=== PATIENT | female | born 1985 | race Hispanic/Latino ===

== ENCOUNTER 2022-07-07 10:23 | Day surgery (SDC) | payer BC, OTHER ==
[2022-07-07 11:07] VITALS: BMI 35.8
[2022-07-07] MEDS ORDERED: hydrALAZINE 20 MG/ML VIAL SLOW IVP PRN (11:51)
[2022-07-07 13:25] LABS: ALT (SGPT) 17 U/L (8-55); AST (SGOT) 18 U/L (5-34); Albumin 3.7 g/dL (3.5-5.0); Alkaline Phosphatase 112 U/L (40-110); Anion Gap 14 mmol/L (10-20); BUN (Urea Nitrogen) 5 mg/dL (7.0-18.7); Bilirubin, Total 0.4 mg/dL (0.2-1.2); Calc. Creatinine Clearance 169 mL/min (70-130); Calcium 8.9 mg/dL (7.8-10.44); Carbon Dioxide 21 mmol/L (22-29); Chloride 103 mmol/L (98-107); Estimated GFR 117; Globulin 3.4 g/dL (2.4-3.5); Glucose 82 mg/dL (70-105); Potassium 3.4 mmol/L (3.5-5.1); Protein, Total 7.1 g/dL (6.0-8.3); Sodium 135 mmol/L (136-145)
[2022-07-07 13:34] LABS: Creatinine, Urine 27.38 mg/dL (47-110); Protein, Urine Random Quant Less than 10 mg/dL (1-14)
[2022-07-07 13:37] LABS: #Basophils 0.1 10x3/uL (0.0-0.2); #Eosinphils 0.6 10x3/uL (0.0-0.5); #Monocytes 0.8 10x3/uL (0.0-1.1); %Basophils 0.4 % (0.0-2.0); %Eosinophils 5.4 % (0.0-6.0); %Lymphocytes 19.3 % (18.0-47.0); %Monocytes 6.7 % (0.0-10.0); %Neutrophils 67.5 % (40.0-75.0); Hemoglobin 13.3 g/dL (12.0-15.5); Mean Corpuscular HGB CONC 33.5 g/dL (32.0-36.0); Mean Corpuscular Hemoglobin 29.8 pg (27.0-33.0); Mean Platelet Volume 10.2 fl (7.4-10.4); Platelet Count 278 10x3/uL (150-450); RBC Distribution Width 13.2 % (11.5-14.5); Red Blood Cell (RBC) Count 4.46 10x6/uL (3.90-5.03); White Blood Cell (WBC) Count 11.9 10x3/uL (3.5-10.5)
[2022-07-07] MEDS ORDERED: Labetalol HCl 100 MG TAB PO SCH (14:00)
== END 2022-07-07 15:05 | disposition home or self-care (01) ==
LOC: CSHLD/OP 10:23
PROVIDERS: ATTEND Obstetrics & Gynecology
DX: O36.8130 Decreased fetal movements, third trimester, not applicable or unspecified (principal); O47.03 False labor before 37 completed weeks of gestation, third trimester; O09.523 Supervision of elderly multigravida, third trimester; O99.013 Anemia complicating pregnancy, third trimester; D64.9 Anemia, unspecified; O10.013 Pre-existing essential hypertension complicating pregnancy, third trimester; O26.893 Other specified pregnancy related conditions, third trimester; L29.9 Pruritus, unspecified; Z79.899 Other long term (current) drug therapy; Z3A.35 35 weeks gestation of pregnancy; Z87.59 Personal history of other complications of pregnancy, childbirth and the puerperium
CPT/HCPCS: 76819; 80053; 82239; 82570; 84156; 85025

== ENCOUNTER 2022-07-09 12:46 | Inpatient (IN) | payer BC, OTHER ==
[~2022-07-09 12:46] MED LIST: Bupivacaine 0.25% HCL 30 ML VIAL ONE; Bupivacaine HCl 0.5%/Epinephrine 1:200,000/PF 30 ml Vial ONE
[2022-07-09] MEDS ORDERED: hydrALAZINE 20 MG/ML VIAL SLOW IVP PRN ×2 (13:15→15:18)
[2022-07-09 13:58] LABS: #Eosinphils 0.2 10x3/uL (0.0-0.5); #Monocytes 0.8 10x3/uL (0.0-1.1); #Neutrophils 6.9 10x3/uL (1.5-8.4); %Basophils 0.2 % (0.0-2.0); %Eosinophils 2.4 % (0.0-6.0); %Lymphocytes 18.9 % (18.0-47.0); Hemoglobin 13.2 g/dL (12.0-15.5); Mean Corpuscular HGB CONC 33.2 g/dL (32.0-36.0); Mean Corpuscular Hemoglobin 29.3 pg (27.0-33.0); Mean Corpuscular Volume 88.2 fl (81.6-98.3); Mean Platelet Volume 10.3 fl (7.4-10.4); Platelet Count 257 10x3/uL (150-450); RBC Distribution Width 13.1 % (11.5-14.5); White Blood Cell (WBC) Count 9.8 10x3/uL (3.5-10.5)
[2022-07-09 14:01] VITALS: BMI 36.0
[2022-07-09 14:14] LABS: ALT (SGPT) 17 U/L (8-55); AST (SGOT) 16 U/L (5-34); Albumin 3.4 g/dL (3.5-5.0); Alkaline Phosphatase 99 U/L (40-110); Anion Gap 12 mmol/L (10-20); BUN (Urea Nitrogen) 9 mg/dL (7.0-18.7); Bilirubin, Total 0.3 mg/dL (0.2-1.2); Calc. Creatinine Clearance 167 mL/min (70-130); Calcium 8.9 mg/dL (7.8-10.44); Carbon Dioxide 21 mmol/L (22-29); Chloride 105 mmol/L (98-107); Estimated GFR 116; Globulin 3.2 g/dL (2.4-3.5); Glucose 86 mg/dL (70-105); Potassium 3.8 mmol/L (3.5-5.1); Protein, Total 6.6 g/dL (6.0-8.3); Sodium 134 mmol/L (136-145)
[2022-07-09] MEDS ORDERED: Fentanyl 2 mcg/Bup 0.1% Cadd 100 ML ONE (15:13)
[2022-07-09] MEDS ORDERED: Promethazine HCl 25 MG/ML VIAL IM PRN ×2 (15:18→16:02)
[2022-07-09] MEDS ORDERED: Misoprostol 200 MCG TAB PR PRN (15:18)
[2022-07-09] MEDS ORDERED: Carboprost 250 MCG/ML AMP IM PRN (15:18)
[2022-07-09] MEDS ORDERED: Ondansetron PF 4 MG/2 ML Vial IVP PRN (15:18)
[2022-07-09] MEDS ORDERED: Diphenoxylate HCl/Atropine Tablet PO PRN ×2 (15:18)
[2022-07-09] MEDS ORDERED: HYDROcodone/Acetaminophen 5/325 mg Tablet PO PRN ×2 (15:18)
[2022-07-09] MEDS ORDERED: Lidocaine 1% (PF) 30 ML VIAL SC PRN (15:18)
[2022-07-09] MEDS ORDERED: Ibuprofen 800 MG TAB PO PRN (15:18)
[2022-07-09] MEDS ORDERED: Terbutaline Sulfate 1 MG/ML VIAL ONE (15:19)
[2022-07-09] MEDS ORDERED: Mineral Oil ENEMA ONE (15:20)
[2022-07-09] MEDS: Lactated Ringer's 1,000 ML IV SCH (15:27)
[2022-07-09] MEDS ORDERED: NS w/ Oxytocin 30 units 500 ML IV SCH ×2 (15:30)
[2022-07-09] MEDS ORDERED: Penicillin G Potassium 5 MILL.UNITS in Sodium Chloride 0.9% 100 ML IVPB SCH (15:30)
[2022-07-09 15:38] LABS: Hemoglobin 13.7 g/dL (12.0-15.5); Mean Corpuscular HGB CONC 33.8 g/dL (32.0-36.0); Mean Corpuscular Hemoglobin 29.8 pg (27.0-33.0); Mean Platelet Volume 11.3 fl (7.4-10.4); Platelet Count 277 10x3/uL (150-450); RBC Distribution Width 13.2 % (11.5-14.5); White Blood Cell (WBC) Count 10.7 10x3/uL (3.5-10.5)
[2022-07-09 15:50] LABS: SARS-CoV-2 NAA Rapid Test Not Detected (NotDetected)
[2022-07-09] MEDS ORDERED: Lactated Ringer's 500 ML IV PRN (16:02)
[2022-07-09] MEDS ORDERED: Naloxone HCl 0.4 mg/ml Vial IVP PRN ×2 (16:02)
[2022-07-09] MEDS ORDERED: diphenhydrAMINE 50 MG/ML VIAL IVP PRN (16:02)
[2022-07-09] MEDS ORDERED: ePHEDrine Sulfate 50 MG/10 ML VIAL SLOW IVP PRN (16:02)
[2022-07-09] MEDS ORDERED: Moisturizing Cream (Eucerin) 113 GM JAR TOP PRN (16:02)
[2022-07-09] MEDS ORDERED: Communication Order-Pharmacy FS SCH (16:15)
[2022-07-09] MEDS ORDERED: Fentanyl 2 mcg/Bupivacaine 0.1% Cassette 100 ML EPIDURAL SCH (16:15)
[2022-07-09] MEDS ORDERED: Magnesium Sulfate 20 gm/500 ml 20 GM/500 ML BAG ONE (16:33)
[2022-07-09 17:04] LABS: Syphilis Antibody Nonreactive (Nonreactive); Syphilis Antibody Index 0.05 S/CO (<1.00 Non-Reactive)
[2022-07-09 17:06] LABS: HBSAg Index 0.17 S/CO (0-0.99); Hep B Surf Ag Non-Reactive S/CO (NonReactive)
[2022-07-09] MEDS: Pen G 2.5 MILL.UNITS/50 ML BAG IVPB SCH (20:57)
[2022-07-09] MEDS: Acetaminophen 325 MG TAB PO PRN (20:58)
[2022-07-09] MEDS: Ondansetron PF 4 MG/2 ML Vial IVP PRN (23:21)
[2022-07-10] MEDS ORDERED: Magnesium Sulfate 20 gm/500 ml 20 GM/500 ML BAG ONE (01:00)
[2022-07-10] MEDS: Pen G 2.5 MILL.UNITS/50 ML BAG IVPB SCH ×3 (01:02→11:29)
[2022-07-10] MEDS: Acetaminophen 325 MG TAB PO PRN ×3 (04:29→17:20)
[2022-07-10] MEDS: Calcium Carbonate 500 MG ChewTAB PO PRN ×2 (04:57→13:27)
[2022-07-10] MEDS ORDERED: Lorazepam 2 MG/ML VIAL SLOW IVP PRN (05:19)
[2022-07-10] MEDS ORDERED: hydrALAZINE 20 MG/ML VIAL SLOW IVP PRN (05:19)
[2022-07-10] MEDS ORDERED: Calcium Gluc 4.6 MEQ/10 ML (100 MG/ML) SLOW IVP PRN (05:19)
[2022-07-10] MEDS ORDERED: Labetalol HCl 100 MG/20 ML VIAL SLOW IVP PRN ×2 (05:19)
[2022-07-10] MEDS ORDERED: Magnesium Sulfate 20 gm/500 ml 20 GM/500 ML BAG IVPB SCH (05:30)
[2022-07-10] MEDS ORDERED: Fentanyl 2 mcg/Bup 0.1% Cadd 100 ML ONE (07:42)
[2022-07-10] MEDS: Ondansetron PF 4 MG/2 ML Vial IVP PRN (09:00)
[2022-07-10] MEDS ORDERED: Fentanyl 100 MCG/2 ML VIAL ONE (10:14)
[2022-07-10] MEDS ORDERED: Carboprost 250 MCG/ML AMP ONE (12:22)
[2022-07-10] MEDS ORDERED: Diphenoxylate HCl/Atropine Tablet PO PRN (13:05)
[2022-07-10] MEDS ORDERED: Ibuprofen 800 MG TAB PO PRN (13:05)
[2022-07-10] MEDS ORDERED: Mag-Al 1200 mg/1200 mg/30 ML UDCUP PO PRN (13:05)
[2022-07-10] MEDS ORDERED: Diphenoxylate HCl/Atropine Tablet PO SCH (13:15)
[2022-07-10] MEDS ORDERED: Labetalol HCl 200 MG TAB PO SCH (18:45)
[2022-07-10] MEDS: Magnesium Sulfate 20 gm/500 ml 20 GM/500 ML BAG IVPB SCH (21:18)
[2022-07-11] MEDS: Magnesium Sulfate 20 gm/500 ml 20 GM/500 ML BAG IVPB SCH (08:08)
[2022-07-11] MEDS ORDERED: Labetalol HCl 200 MG TAB PO SCH ×2 (09:00→12:00)
[2022-07-11] MEDS ORDERED: Misoprostol 200 MCG TAB VAG PRN (11:43)
[2022-07-11] MEDS ORDERED: Benzocaine-Menthol 82.5 ML CAN TOP PRN (11:43)
[2022-07-11] MEDS ORDERED: Bisacodyl 10 MG SUPP PR PRN (11:43)
[2022-07-11] MEDS ORDERED: Milk Of Magnesia 30 ML UDCUP PO PRN (11:43)
[2022-07-11] MEDS ORDERED: Lanolin Ointment 7 GM TUBE TOP PRN (11:43)
[2022-07-11] MEDS ORDERED: hydrALAZINE 20 MG/ML VIAL SLOW IVP PRN (11:43)
[2022-07-11] MEDS ORDERED: Boostrix 0.5 ML (Tdap) VIAL (>/=7 yrs of age) IM ONE (11:43)
[2022-07-11] MEDS ORDERED: Prenatal Vitamin 1 TAB PO SCH (12:00)
[2022-07-11] MEDS ORDERED: Docusate 100 MG CAP PO SCH (12:00)
[2022-07-11] MEDS: Lactated Ringer's 1,000 ML IV SCH ×2 (12:23→12:24)
[2022-07-11] MEDS: Ibuprofen 800 MG TAB PO SCH ×2 (12:31→21:22)
[2022-07-11] MEDS: Pen G 2.5 MILL.UNITS/50 ML BAG IVPB SCH (12:34)
[2022-07-11] MEDS: Ferrous Sulfate 325 MG TAB PO SCH (15:46)
[2022-07-11] MEDS: Docusate 100 MG CAP PO SCH (21:22)
[2022-07-11] MEDS: Labetalol HCl 200 MG TAB PO SCH (21:22)
[2022-07-12] MEDS: Ibuprofen 800 MG TAB PO SCH ×2 (06:00→13:55)
[2022-07-12] MEDS: Ferrous Sulfate 325 MG TAB PO SCH (07:05)
[2022-07-12] MEDS: Labetalol HCl 200 MG TAB PO SCH (08:36)
[2022-07-12] MEDS: Docusate 100 MG CAP PO SCH (08:36)
[2022-07-12] MEDS ORDERED: Prenatal Vitamin 1 TAB PO SCH (09:00)
[2022-07-12 16:24] VITALS: BP 138/76; TEMP 98.7
== END 2022-07-12 17:30 | disposition home or self-care (01) | DRG 806 ==
LOC: CSHLD/OP 12:46 → CSHLD 15:08 → CSHPP 07-11 12:00
PROVIDERS: ADMIT Obstetrics & Gynecology; ATTEND Obstetrics & Gynecology
PROC: 10E0XZZ Delivery of Products of Conception, External Approach (ICD-10-PCS; principal; 2022-07-09)
DX: O60.14X0 Preterm labor third trimester with preterm delivery third trimester, not applicable or unspecified (principal); O10.02 Pre-existing essential hypertension complicating childbirth; Z37.0 Single live birth; O11.4 Pre-existing hypertension with pre-eclampsia, complicating childbirth; O75.89 Other specified complications of labor and delivery; O69.81X0 Labor and delivery complicated by cord around neck, without compression, not applicable or unspecified; Z3A.36 36 weeks gestation of pregnancy; O32.1XX0 Maternal care for breech presentation, not applicable or unspecified; Z20.822 Contact with and (suspected) exposure to COVID-19
CPT/HCPCS: 51702; 76819; 80053; 82239; 82570; 84156; 85025; 86780; 86850; 86900; 86901; 87340; 99285; J0360; J2405; J2540; J3105; J3475; J7120; S0020; U0002

== ENCOUNTER 2022-07-15 18:13 | Emergency (ER) | payer BC, OTHER ==
[2022-07-15 19:05] LABS: #Eosinphils 0.3 10x3/uL (0.0-0.5); #Monocytes 0.6 10x3/uL (0.0-1.1); %Basophils 0.4 % (0.0-2.0); %Eosinophils 2.8 % (0.0-6.0); %Lymphocytes 17.5 % (18.0-47.0); %Monocytes 5.2 % (0.0-10.0); %Neutrophils 73.3 % (40.0-75.0); Hemoglobin 12.2 g/dL (12.0-15.5); Mean Corpuscular HGB CONC 33.2 g/dL (32.0-36.0); Mean Corpuscular Hemoglobin 29.8 pg (27.0-33.0); Mean Corpuscular Volume 89.7 fl (81.6-98.3); Mean Platelet Volume 9.7 fl (7.4-10.4); Platelet Count 332 10x3/uL (150-450); Red Blood Cell (RBC) Count 4.09 10x6/uL (3.90-5.03); White Blood Cell (WBC) Count 10.9 10x3/uL (3.5-10.5)
[2022-07-15] MEDS ORDERED: NIFEdipine 10 MG CAP PO SCH ×2 (19:15→20:00)
[2022-07-15 19:18] LABS: Bilirubin Neg (Negative); Blood, Urine 250 (Negative); Clarity Clear (Clear); Glucose, Urine (Dipstick) Normal (Negative); Ketone, Urine 150 mg/dL (Negative); Leukocyte 100 (Negative); Nitrite Negative (Negative); Protein, Urine (Dipstick) 15 mg/dl (Neg-Trace); Specific Gravity, Urine 1.025 (1.005-1.030); Urobilinogen Normal mg/dL (Less than 2)
[2022-07-15 19:25] LABS: ALT (SGPT) 61 U/L (8-55); AST (SGOT) 31 U/L (5-34); Albumin 3.7 g/dL (3.5-5.0); Alkaline Phosphatase 105 U/L (40-110); Anion Gap 17 mmol/L (10-20); BUN (Urea Nitrogen) 9 mg/dL (7.0-18.7); Bilirubin, Total 0.3 mg/dL (0.2-1.2); Calc. Creatinine Clearance 0 mL/min (70-130); Calcium 8.9 mg/dL (7.8-10.44); Carbon Dioxide 19 mmol/L (22-29); Chloride 109 mmol/L (98-107); Estimated GFR 118; Globulin 3.2 g/dL (2.4-3.5); Glucose 77 mg/dL (70-105); Magnesium 1.7 mg/dL (1.6-2.6); Potassium 3.6 mmol/L (3.5-5.1); Protein, Total 6.9 g/dL (6.0-8.3); Sodium 141 mmol/L (136-145)
[2022-07-15 19:48] LABS: Bacteria/HPF Rare-Few HPF (None Seen); Squamous Epithelial 0-3 HPF (0-3)
== END 2022-07-15 20:55 | disposition home or self-care (01) ==
LOC: CSHERS 18:13
DX: O16.5 Unspecified maternal hypertension, complicating the puerperium (principal); K21.9 Gastro-esophageal reflux disease without esophagitis
CPT/HCPCS: 80053; 81003; 81015; 83615; 83735; 85025; 99283